=== PATIENT | female | born 1970 ===

== ENCOUNTER 2022-05-14 06:00 | Outpatient (RCR) | payer BC, SELFPAY | END 2022-06-13 23:59 | disposition home or self-care (01) | LOC: SPT 06:00 | PROVIDERS: Visit Provider Chiropractor | DX: M99.05 Segmental and somatic dysfunction of pelvic region (principal) | CPT/HCPCS: 97110; 97140; 97161; 97530 ==

== ENCOUNTER 2022-06-14 06:00 | Outpatient (RCR) | payer BC, SELFPAY | END 2022-07-14 23:59 | disposition home or self-care (01) | LOC: SPT 06:00 | PROVIDERS: Visit Provider Chiropractor | DX: M99.05 Segmental and somatic dysfunction of pelvic region (principal) | CPT/HCPCS: 97110; 97140 ==